=== PATIENT | female | born 1950 | race Caucasian/White ===

== ENCOUNTER → 2017-05-20 | Outpatient (CLI) | payer BC, MEDICARE ==
--- NOTE | 2017-05-20 10:06 | PCVCIMAG ---
EXAM: AORTOILIAC DUPLEX INDICATION: Peripheral arterial disease FINDINGS: AORTA: Suprarenal aorta measures maximum diameter of 3.0 cm. There is not a fusiform infrarenal aortic aneurysm. The infrarenal aorta measures maximum diameter of 2.3 cm. No aortic stenosis. RIGHT COMMON ILIAC ARTERY: Maximum diameter is 1.1 cm. 80% restenosis right common iliac artery within prior stent. RIGHT EXTERNAL ILIAC ARTERY: No significant stenosis. LEFT COMMON ILIAC ARTERY: Maximum diameter is 1.3 cm. No significant stenosis. LEFT EXTERNAL ILIAC ARTERY: No significant stenosis. IMPRESSION: 80% restenosis right common iliac artery. No left iliac stenosis. LOC:[id number]
== END | disposition home or self-care (01) ==
LOC: PCVCIMAG 08:50
PROVIDERS: ATTEND Internal Medicine Cardiovascular Disease
DX: I73.9 Peripheral vascular disease, unspecified (principal); I70.8 Atherosclerosis of other arteries; R00.1 Bradycardia, unspecified; J44.9 Chronic obstructive pulmonary disease, unspecified; I48.91 Unspecified atrial fibrillation; F17.210 Nicotine dependence, cigarettes, uncomplicated; Z95.820 Peripheral vascular angioplasty status with implants and grafts; Z79.899 Other long term (current) drug therapy
CPT/HCPCS: 36415; 80061; 93005; 93978

== ENCOUNTER → 2017-05-25 | Outpatient (CLI) | payer BC, MEDICARE ==
[~2017-05-25] MED LIST: DIAZEPAM 10 MG TABLET. ONE; EPINEPHrine 1 MG/ML VIAL ONE; EPTIFIBATIDE BOLUS 2,000 MCG/ML 10ML VIAL. IV ONE; HEPARIN SODIUM 5,000 UNIT/ML VIAL for PCVC. ONE; IODIXANOL 270 MG/ML 100 ML VIAL. ONE; IV NORMAL SALINE 1000ML BAG 1,000 ML ONE; LIDOCAINE 1% Multi-Dose 20 ML VIAL. ONE; MIDAZOLAM HCL/PF 2 MG/2 ML VIAL. ONE; diphenhydrAMINE 50 MG/ML VIAL ONE; fentaNYL PF VIAL 100 MCG/2 ML VIAL ONE; hydrALAZINE 20 MG/ML VIAL. ONE; methylPREDNISolone SOD SUCC PF 125 MG/2 ML VIAL. ONE
--- NOTE | 2017-05-25 12:48 | PCVCINTER ---
EXAM: 1. AORTOGRAM AND BILATERAL LOWER EXTREMITY RUNOFF ANGIOGRAM 2. BILATERAL RENAL ANGIOGRAPHY 3. RIGHT COMMON ILIAC ARTERY STENT GRAFT PLACEMENT. 4. LEFT COMMON ILIAC ARTERY STENT GRAFT PLACEMENT. 5. DISTAL AORTIC STENT GRAFT PLACEMENT. 6. RIGHT EXTERNAL ILIAC ARTERY STENT PLACEMENT. 7. LEFT EXTERNAL ILIAC ARTERY STENT PLACEMENT. INDICATION: Peripheral arterial disease. Coronary artery disease. Bilateral hip claudication right greater than left. Hypertension. Renal atherosclerosis. PROCEDURE: Procedure and risks of angiography intervention is appropriate including limb loss stroke and were discussed with the patient's family and consent obtained. The patient's left groin was prepped abnormal sterile fashion. IV conscious sedation was used to procedure with appropriate monitoring from 10:30 AM through 12:15 PM. Ultrasound was used to interrogate the left groin and showed the left common femoral artery to be patent. A permanent spot film was obtained. Under ultrasound guidance access into the left common femoral artery was obtained and a 5 [place] sheath was placed. Through this a 5 [place] flush catheter was placed into the abdominal aorta at the level of the renal arteries and AP aortogram was performed. Catheter was positioned at the aortic bifurcation and both oblique views of the pelvis were obtained. Catheter was positioned into the left external iliac artery and left leg runoff angiography was performed. Catheter was exchanged for a visceral catheter was placed into the right renal arteries and right renal angiograms obtained. Catheter was placed into the the left renal arteries and left renal angiograms were obtained. The right groin was prepped and draped in the normal sterile fashion and ultrasound used to interrogate the right common femoral artery and a spot film obtained. Under ultrasound guidance access the right common femoral artery was obtained in an 8 [place]at[place] sheath was placed. Through the right groin sheath a catheter was advanced to the level of the right external iliac artery and right leg runoff angiography was obtained. Patient was given 4500 units of heparin. Stent placement across the areas of high-grade stenosis in the right common iliac artery was carried out with a 10 x 59 Jber VBX stent graft with subsequent dilatation to 10.0 mm. Stent placement across the areas of high-grade stenosis in the left common iliac artery was carried out with a 10 x 59 Jber VBX stent graft with subsequent dilatation to 10.0 mm. This was done in a kissing balloon-type fashion. Stenosis in the distal aorta was treated with Jber VBX stent grafts placed to raise the aortic bifurcation. Stent placement across the areas of high-grade stenosis in the right external iliac artery was carried out with a 12 x 40 Smart control stent with subsequent dilatation to 8.0 mm. Stent placement across the areas of high-grade stenosis in the left external iliac artery was carried out with a 8 x 40 Smart control stent with subsequent dilatation to 8.0 mm. Follow-up angiogram was performed. Catheters and wires removed. Sheaths were removed and hemostasis obtained using the FISH devices. No immediate complications. FINDINGS: Aortogram: There is one right and one left renal artery. Moderate atheromatous changes throughout the infrarenal abdominal aorta with distal aortic stenosis. Pelvis: 80% stenosis at the origin of the right common iliac artery within prior stent. Moderate stenosis proximal right external iliac artery. Stenosis proximal left external iliac artery. Stenosis proximal left common iliac artery within prior stent. Right renal artery: Mild plaque proximal vessel does not cause significant stenosis. Left renal artery: Mild plaque proximal vessel does not cause significant stenosis. Right leg: The common femoral and profunda femoral arteries are patent. The superficial femoral artery and popliteal artery are patent. The anterior tibial, peroneal, and posterior tibial arteries are patent. Left leg: The common femoral and profunda femoral arteries are patent. The superficial femoral artery and popliteal artery are patent. The anterior tibial, peroneal, and posterior tibial arteries are patent. Right common iliac artery: Following procedure as above vessel shows good patency without significant stenosis. Right external iliac artery: Following procedure as above vessel shows good patency without significant stenosis. Left common iliac artery: Following procedure as above vessel shows good patency without significant stenosis. Left external iliac artery: Following procedure as above vessel shows good patency without significant stenosis. Distal aorta: Following procedure as above vessel shows good patency without significant stenosis. IMPRESSION: Stenosis in the distal aorta, right and left common iliac and right and left external iliac arteries were treated as above with good patency restored. LOC:[id number]
== END | disposition home or self-care (01) ==
LOC: PCVCINTER 09:08
PROVIDERS: ATTEND Internal Medicine Cardiovascular Disease
DX: I70.213 Atherosclerosis of native arteries of extremities with intermittent claudication, bilateral legs (principal); I25.10 Atherosclerotic heart disease of native coronary artery without angina pectoris; I10 Essential (primary) hypertension; I70.1 Atherosclerosis of renal artery
CPT/HCPCS: 36252; 37221; 37223; 37236; 75716; 76937; 99152; 99153; C1725; C1751; C1769; C1874; C1876; C1894; J0171; J0360; J0690; J1200; J1327; J1644; J2250; J2930; J3010; J7030; Q9966

== ENCOUNTER → 2017-09-22 | Outpatient (CLI) | payer MEDICARE, BC | END | disposition home or self-care (01) | LOC: PCVCIMAG 09:24 | DX: I73.9 Peripheral vascular disease, unspecified (principal); I77.9 Disorder of arteries and arterioles, unspecified; I25.10 Atherosclerotic heart disease of native coronary artery without angina pectoris; I48.91 Unspecified atrial fibrillation; I10 Essential (primary) hypertension; E78.00 Pure hypercholesterolemia, unspecified; J44.9 Chronic obstructive pulmonary disease, unspecified; I70.0 Atherosclerosis of aorta; F17.210 Nicotine dependence, cigarettes, uncomplicated; Z79.899 Other long term (current) drug therapy | CPT/HCPCS: 93923; 93978; G0463 ==

== ENCOUNTER → 2018-03-18 | Outpatient (CLI) | payer MEDICARE ==
[~2018-03-18] MED LIST changes: -DIAZEPAM 10 MG TABLET. ONE; -EPINEPHrine 1 MG/ML VIAL ONE; -EPTIFIBATIDE BOLUS 2,000 MCG/ML 10ML VIAL. IV ONE; -HEPARIN SODIUM 5,000 UNIT/ML VIAL for PCVC. ONE; -IODIXANOL 270 MG/ML 100 ML VIAL. ONE; -IV NORMAL SALINE 1000ML BAG 1,000 ML ONE; -LIDOCAINE 1% Multi-Dose 20 ML VIAL. ONE; -MIDAZOLAM HCL/PF 2 MG/2 ML VIAL. ONE; +REGADENOSON 0.4 MG/5 ML DISP.SYRIN. IV ONE; -diphenhydrAMINE 50 MG/ML VIAL ONE; -fentaNYL PF VIAL 100 MCG/2 ML VIAL ONE; -hydrALAZINE 20 MG/ML VIAL. ONE; -methylPREDNISolone SOD SUCC PF 125 MG/2 ML VIAL. ONE
--- NOTE | 2018-03-19 15:28 | PCVCIMAG ---
APPROVED REPORT Imaging Protocol: Rest Tc-99m/Stress Tc-99m 1 day Study performed: 03/18/2018 09:34:04 Indication: Atrial Fibrillation, CAD, Pre-Operative CV evaluation Patient Location: Out-Patient Stress Nurse: Tracee Abel RN [place] Tech:JUDITH Campbell Ht: 5 ft 10 in Wt: 230 lbs BSA: 2.21 m2 HR: 62 bpm BP: 152/74 mmHg BMI: 32.9 Rhythm: NSR Medical History Medications: ASA, Dilitizem, Flecainide, Metoprolol, Xarelto, Crestor Allergies: SHELLFISH, PLAVIX Cardiac Risk Factors: Age, HTN, Hyperlipidemia, Tobacco History (Current/Recent), CAD, COPD, PVD, CVD Previous Cardiac Procedures: Heart Cath 2017 following abn Nuc showing mild - moderate three vessel disease Pretest Chest Pain Characteristics: No chest pain Physical Disabilities: Hips Resting Data Rest SPECT myocardial perfusion imaging was performed in supine position 45 minutes following the intravenous injection of 11.0 mCi of Tc-99m Sestamibi. Time of rest injection: 929 Date: 03/18/2018 Administration Route: IV Administration Site: Left Hand Pharmacologic Stress Pharmacologic stress test was performed by injecting Regadenoson 0.4 mg IV push over 10-15 seconds immediately followed by the intravenous injection of 34.7 mCi of Tc-99m Sestamibi. Time of stress injection: 1044 Date: 03/18/2018 Administration Route: IV Administration Site: Left Hand Gated Stress SPECT was performed 45 minutes after stress injection. The images were gated to evaluate regional wall motion and calculate left ventricular ejection fraction. Comments PRIOR NUC 07/2016: ABNORMAL Stress Test Details Stress Test: Pharmacologic stress testing performed using 0.4 mg of regadenoson per 5 mL given IV over 10 seconds. Reason for pharmacologic stress test: HIP. HRMax Heart Rate (APMHR): 154 bpm Resting HR: 62 bpmTarget HR (85% APMHR): 130 bpm Max HR Achieved: 81 bpm % of APMHR: 52 Recovery HR: 75 bpm BP Resting BP: 152/74 mmHg Recovery BP: 129/65 mmHg ECG Resting ECG: Sinus Rhythm Stress ECG: Sinus Rhythm, NSSTT changes ST Change: Non-ischemic Arrhythmia: PVCs Recovery ECG: Sinus Rhythm Clinical Reason for Termination: Completed protocol Stress Symptoms: Dyspnea, Lightheaded Exercise duration: 0 min 55 sec Symptoms resolved with caffeine. Stress ECG Conclusion ECG: Non-ischemic Study Quality Study: Good Study Data Post stress, the left ventricular ejection was 75%.. SSS: 8 SRS: 1 SDS: 7 TID = 1.09. Perfusion Medium sized area of moderate reversible ischemia involving the anterior left ventricle consistent with a left anterior descending distribution. Small sized area of moderate reversible ischemia involving the basal inferior left ventricle consistent with a right coronary artery distribution. Wall Motion Normal left ventricular size and function with no regional wall motion abnormalities. Nuclear Conclusion Medium sized area of moderate reversible ischemia involving the anterior left ventricle consistent with a left anterior descending distribution. Small sized area of moderate reversible ischemia involving the basal inferior left ventricle consistent with a right coronary artery distribution. Normal left ventricular size and function with no regional wall motion abnormalities. Post stress, the left ventricular ejection was 75%. No change since prior study dated July 2016. Interpreted by: Jerome Caldera MD Electronically Approved: 03/18/2018 16:37:42 <Conclusion> ECG: Non-ischemic
== END | disposition home or self-care (01) ==
LOC: PCVCIMAG 10:40
PROVIDERS: ATTEND Internal Medicine Cardiovascular Disease
DX: I25.10 Atherosclerotic heart disease of native coronary artery without angina pectoris (principal); I48.91 Unspecified atrial fibrillation
CPT/HCPCS: 78452; 93017; A9500; J2785

== ENCOUNTER → 2018-11-25 | Outpatient (CLI) | payer MEDICARE ==
--- NOTE | 2018-11-25 17:13 | PCVCIMAG ---
EXAM: BILATERAL CAROTID DUPLEX INDICATION: Carotid Occlusive Disease. FINDINGS: Doppler Measurements (centimeters per second): RIGHT: Peak CCA-82, Peak ECA-90, Diastolic ICA-19, Peak ICA-90, ICA/CCA Ratio-1.1. LEFT: Peak CCA-98, Peak ECA-86, Diastolic ICA-15, Peak ICA-82, ICA/CCA Ratio-0.8. RIGHT CAROTID: The carotid bulb has moderate plaque. The proximal internal carotid artery shows <40% stenosis. The common carotid artery shows no significant stenosis. The external carotid artery shows no significant stenosis. LEFT CAROTID: The carotid bulb has mild plaque. The proximal internal carotid artery shows <40% stenosis. The common carotid artery shows no significant stenosis. The external carotid artery shows no significant stenosis. Antegrade flow in both vertebral arteries. IMPRESSION: <40% stenosis of the right internal carotid artery with moderate plaque. <40% stenosis of the left internal carotid artery with mild plaque. LOC:[place] [id number]
--- NOTE | 2018-11-25 17:18 | PCVCIMAG ---
EXAM: NONINVASIVE ARTERIAL EXAMINATION OF BOTH LOWER EXTREMITIES INCLUDING PRE AND POST EXERCISE PRESSURE MEASUREMENTS AND DOPPLER WAVEFORMS INDICATION: Peripheral Arterial Disease. Leg pain. FINDINGS: Right Brachial: 131 mm Hg. Right Dorsalis Pedis: 113 mm Hg. Right Posterior Tibial: 125 mm Hg. Right CHRISTOPHE = 0.95. Left Brachial: 124 mm Hg. Left Dorsalis Pedis: 97 mm Hg. Left Posterior Tibial: 106 mm Hg. Left CHRISTOPHE = 0.81. Post Exercise: Right Brachial 118 mm Hg. Right Posterior Tibial: 96 mm Hg. Left Posterior Tibial: 93 mm Hg. Right CHRISTOPHE = 0.81. Left CHRISTOPHE = 0.79. IMPRESSION: No resting ischemia in the right lower extremity. Minimal exercise induced ischemia in the right lower extremity. Minimal resting ischemia in the left lower extremity. Minimal exercise induced ischemia in the left lower extremity. LOC:[id number]
--- NOTE | 2018-11-25 17:23 | PCVCIMAG ---
EXAM: AORTOILIAC DUPLEX INDICATION: Peripheral arterial disease FINDINGS: AORTA: Suprarenal aorta measures maximum diameter of 2.9 cm. There is not a fusiform infrarenal aortic aneurysm. The infrarenal aorta measures maximum diameter of 1.9 cm. No aortic stenosis. RIGHT COMMON ILIAC ARTERY: Maximum diameter is 1.2 cm. No significant stenosis. RIGHT EXTERNAL ILIAC ARTERY: No significant stenosis. LEFT COMMON ILIAC ARTERY: Maximum diameter is 1.0 cm. No significant stenosis. LEFT EXTERNAL ILIAC ARTERY: 50% restenosis mid vessel. IMPRESSION: No abdominal aortic aneurysm. Previous distal aortic and bilateral common iliac artery stents are patent. Right external iliac artery is patent. 80% restenosis mid left external iliac artery with prior stent. LOC:[id number]
== END | disposition home or self-care (01) ==
LOC: PCVCIMAG 08:40
PROVIDERS: ATTEND Nuclear Medicine Nuclear Cardiology
DX: I65.23 Occlusion and stenosis of bilateral carotid arteries (principal); I73.9 Peripheral vascular disease, unspecified; I25.10 Atherosclerotic heart disease of native coronary artery without angina pectoris; E78.00 Pure hypercholesterolemia, unspecified; I48.0 Paroxysmal atrial fibrillation; D68.59 Other primary thrombophilia; F17.210 Nicotine dependence, cigarettes, uncomplicated; Z79.82 Long term (current) use of aspirin; Z88.8 Allergy status to other drugs, medicaments and biological substances
CPT/HCPCS: 36415; 80061; 93005; 93880; 93924; 93978; G0463